=== PATIENT | male | born 1960 | race Two or more races ===

== ENCOUNTER 2018-01-06 07:11 | Inpatient (IN) | payer SELFPAY ==
[~2018-01-06] VITALS: Ht 172.7 cm; Wt 78.0 kg
[2018-01-06] MEDS ORDERED: LIDOCAINE HCL 4% (40MG/ML) SOLN 50ML TOP ONE (08:45)
[2018-01-06] MEDS ORDERED: HYDROCODONE/ACETAMINOPHEN 5/325MG TABLET PO ONE (08:45)
[2018-01-06] MEDS ORDERED: LIDOCAINE HCL 2% JELLY 5ML TOP ONE (11:00)
[2018-01-06] MEDS ORDERED: SODIUM CHLORIDE 0.9% 1,000 ML IV ONE (11:36)
[2018-01-06 11:58] LABS: BASOPHILS % 0.3 % (0.0-2.0); EOSINOPHILS % 0.9 % (0.0-5.0); HEMATOCRIT. 42.8 % (42.0-52.0); HEMOGLOBIN. 14.5 g/dL (14.0-18.0); LYMPHOCYTES % 16.1 % (20.0-50.0); MEAN CORPUSCULAR HEMOGLOBIN 31.9 pg (28.0-32.0); MEAN CORPUSCULAR VOLUME 94.1 fL (80.0-94.0); MEAN PLATELET VOLUME 11.1 fl (7.4-10.4); NEUTROPHILS % 72.7 % (40.0-76.0); PLATELET 153 x1000/uL (130-400); RED BLOOD CELL COUNT 4.55 mill/uL (4.7-6.1); RED CELL DISTRIBUTION WIDTH 12.4 % (11.6-14.6)
[2018-01-06] MEDS ORDERED: POTASSIUM CHLORIDE 20MEQ TABLET SR PO ONE (12:30)
[2018-01-06] MEDS ORDERED: TRAMADOL 50MG TABLET PO ONE (14:00)
[2018-01-06 14:39] LABS: CLARITY URINE CLEAR (CLEAR); COLOR URINE YELLOW (YELLOW); KETONES URINE 1+ (NEGATIVE); LEUKOCYTE ESTERASE URINE NEGATIVE (NEGATIVE); NITRITE URINE NEGATIVE (NEGATIVE); OCCULT BLOOD URINE NEGATIVE (NEGATIVE); PH URINE 5.5 (4.5-8.0); PROTEIN URINE 1+ (NEGATIVE); SPECIFIC GRAVITY URINE 1.024 (1.005-1.030); UROBILINOGEN URINE 0.2 E.U./dL (0.2-1.0)
[2018-01-06] MEDS ORDERED: MORPHINE SULFATE 4 MG/ML CPJ (NOT FOR IM USE) IV SCH (15:20)
[2018-01-06] MEDS ORDERED: DEXT 5%/0.45% NACL KCL 20MEQ/L 1,000 ML IV SCH ×2 (15:55→21:00)
[2018-01-06] MEDS ORDERED: HYDROCODONE/ACETAMINOPHEN 5/325MG TABLET PO PRN ×2 (16:00)
[2018-01-06] MEDS ORDERED: MORPHINE SULFATE 4 MG/ML CPJ (NOT FOR IM USE) IV PRN (16:00)
[2018-01-06] MEDS ORDERED: ONDANSETRON HCL 4MG/2ML INJ IV PRN ×3 (16:00→16:30)
[2018-01-06] MEDS ORDERED: ENOXAPARIN 40MG/0.4ML SYR SUBCUT SCH ×2 (16:15→22:00)
[2018-01-06] MEDS ORDERED: DIPHENHYDRAMINE 50MG/ML VIAL IV PRN ×2 (16:15→16:30)
[2018-01-06] MEDS ORDERED: LORAZEPAM 0.5MG TABLET PO PRN ×2 (16:15→16:30)
[2018-01-06] MEDS ORDERED: NA PHOS,M-B/NA PHOS,DI-BA ENEMA 118ML PR PRN ×2 (16:15→16:30)
[2018-01-06] MEDS ORDERED: IPRATROPIUM/ALBUTEROL 0.5-3(2.5)MG/3ML NEB INH PRN ×2 (16:15→16:30)
[2018-01-06] MEDS ORDERED: DEXTROSE 50% WATER 50ML SYRINGE IV PRN ×2 (16:15→16:30)
[2018-01-06] MEDS ORDERED: GUAIFENESIN 200MG/10ML SUGAR FREE UDC PO PRN ×2 (16:15→16:30)
[2018-01-06] MEDS ORDERED: KETOROLAC 15MG/ML VIAL IV PRN ×2 (16:15→16:30)
[2018-01-06] MEDS ORDERED: ACETAMINOPHEN 325MG TABLET PO PRN ×2 (16:15→16:30)
[2018-01-06] MEDS ORDERED: DOCUSATE SODIUM 100MG CAPSULE PO PRN ×2 (16:15→16:30)
[2018-01-06] MEDS ORDERED: ZOLPIDEM TARTRATE 5MG TABLET PO PRN ×2 (16:15→16:30)
[2018-01-06] MEDS ORDERED: BUPIVACAINE HCL 0.5% (5MG/ML) 50ML ONE (16:33)
[2018-01-06] MEDS ORDERED: FENTANYL CITRATE/PF 50MCG/ML 5ML VIAL ONE (16:40)
[2018-01-06] MEDS ORDERED: PROPOFOL 200MG/20ML VIAL IV ONE (16:41)
[2018-01-06] MEDS ORDERED: MIDAZOLAM HCL 2 MG/2 ML VIAL ONE (16:41)
[2018-01-06] MEDS ORDERED: ROCURONIUM BROMIDE 10MG/ML VIAL 5ML IV ONE (16:46)
[2018-01-06] MEDS ORDERED: METOCLOPRAMIDE HCL 10MG/2ML VIAL ONE (16:55)
[2018-01-06] MEDS ORDERED: ONDANSETRON HCL 4MG/2ML INJ ONE (16:55)
[2018-01-06] MEDS ORDERED: CEFAZOLIN SODIUM 1000MG/VIAL ONE (16:57)
[2018-01-06] MEDS ORDERED: KETOROLAC 30MG/ML VIAL ONE (16:57)
[2018-01-06] MEDS ORDERED: LIDOCAINE HCL/PF 1% 10 MG/ML 5ML VIAL ONE (16:57)
[2018-01-06] MEDS ORDERED: DEXAMETHASONE 4MG/ML 1ML VIAL ONE (16:57)
[2018-01-06] MEDS ORDERED: HYDROMORPHONE HCL/PF 2MG/ML (OR) ONE (16:58)
[2018-01-06] MEDS ORDERED: BLOOD SUGAR DIAGNOSTIC STRIP TEST SCH (17:00)
[2018-01-06] MEDS ORDERED: NEOSTIGMINE METHYLSULFATE 1MG/ML 10 ML VIAL ONE (17:21)
[2018-01-06] MEDS ORDERED: GLYCOPYRROLATE 0.2 MG/ML 2ML VIAL ONE (17:21)
[2018-01-06] MEDS ORDERED: INSULIN LISPRO 100 UNITS/ML SUBCUT SCH (18:20)
[2018-01-06 18:54] LABS: CHLORIDE 98 mEq/L (98-107)
[2018-01-06 21:00] VITALS: BP 119/76
[2018-01-06] MEDS ORDERED: FAMOTIDINE 20MG TABLET PO SCH (21:00)
[2018-01-06] MEDS: BLOOD SUGAR DIAGNOSTIC STRIP TEST SCH (21:50)
[2018-01-06] MEDS: FAMOTIDINE 20MG TABLET PO SCH (21:50)
[2018-01-06] MEDS ORDERED: INSULIN GLARGINE UD 100 UNITS/ML SYR SUBCUT SCH ×2 (22:00)
[2018-01-06] MEDS: INSULIN LISPRO 100 UNITS/ML SUBCUT SCH (22:01)
[2018-01-07] VITALS (7 sets, daily range): BP systolic 112–140; BP diastolic 70–91
[2018-01-07] MEDS: MORPHINE SULFATE 4 MG/ML CPJ (NOT FOR IM USE) IV PRN ×2 (03:39→07:00)
[2018-01-07] MEDS: BLOOD SUGAR DIAGNOSTIC STRIP TEST SCH ×2 (06:20→12:20)
[2018-01-07] MEDS: INSULIN LISPRO 100 UNITS/ML SUBCUT SCH ×2 (07:10→14:47)
[2018-01-07] MEDS: FAMOTIDINE 20MG TABLET PO SCH (09:16)
[2018-01-07] MEDS ORDERED: DEXT 5%/0.45% NACL KCL 20MEQ/L 1,000 ML IV SCH (09:30)
== END 2018-01-07 16:58 | disposition home or self-care (01) | DRG 226 ==
LOC: ER 07:11 → EDBEDREQ 13:11 → EDBEDREQSVC 13:11 → EDBEDREQTM 13:11 → EDBEDREQ 13:13 → EDBEDREQSVC 13:13 → ENRESERV 15:24 → ER 16:15 → 6EST 20:24
PROVIDERS: ADMIT Internal Medicine; ATTEND Internal Medicine
PROC: 06BY0ZC Excision of Hemorrhoidal Plexus, Open Approach (ICD-10-PCS; principal; 2018-01-06 16:00)
DX: K64.5 Perianal venous thrombosis (principal); N17.0 Acute kidney failure with tubular necrosis; E11.65 Type 2 diabetes mellitus with hyperglycemia; K64.8 Other hemorrhoids; E87.1 Hypo-osmolality and hyponatremia; E87.6 Hypokalemia; Z79.4 Long term (current) use of insulin
CPT/HCPCS: 36415; 71045; 80048; 80053; 80076; 81003; 82962; 83036; 85025; 88304; 93005; 96361; 96374; 99285; J0690; J1100; J1170; J1650; J1815; J1885; J2250; J2270; J2405; J2704; J2710; J2765; J3010; J3490; J7030